=== PATIENT | female | born 1990 | race American Indian/Alaskan Native ===

== ENCOUNTER 2016-10-22 12:57 | Emergency (ER) | payer SELFPAY ==
--- NOTE | 2016-10-22 19:33 | Emergency Department Report ---
ED General Adult HPI - General Chief complaint: Extremity Injury, Upper Stated complaint: CHEST PAIN/EAR ACHES/HEADACHES/NAUSEA Time Seen by Provider: 10/22/16 19:32 Source: patient Mode of arrival: Ambulatory Limitations: No Limitations - History of Present Illness Initial comments: Patient reports headache, missed menstrual cycle, left earache and dizziness that started one month ago that is intermittently. However, headache and dizziness has resolved. LMP 09/19/16 Complaint: URI Onset/Timin -: month(s) Location: head Radiation: non-radiation Severity scale (0 -10): 6 Quality: aching Consistency: intermittent Improves with: none Worsens with: movement Associated Symptoms: headaches. denies: confusion, chest pain, cough, diaphoresis, fever/chills, loss of appetite, malaise, nausea/vomiting, rash, seizure, shortness of breath, syncope, weakness Treatments Prior to Arrival: none - Related Data Previous Rx's Medication Instructions Recorded Last Taken Type Vit No.130/Iron/FA 1 each PO DAILY #30 tablet 10/22/16 Unknown Rx [ Tablet] Allergies Allergy/AdvReac Type Severity Reaction Status Date / Time No Known Allergies Allergy Verified 04/12/14 13:08 ED Review of Systems ROS: Stated complaint: CHEST PAIN/EAR ACHES/HEADACHES/NAUSEA Other details as noted in HPI Constitutional: denies: chills, diaphoresis, fever, malaise, weakness Eyes: denies: eye pain, eye discharge, vision change ENT: ear pain (left). denies: throat pain, dental pain, hearing loss, epistaxis , congestion Respiratory: denies: cough, orthopnea, shortness of breath, SOB with exertion, SOB at rest, stridor, wheezing Gastrointestinal: denies: abdominal pain, nausea, vomiting, diarrhea, constipation, hematemesis, melena, hematochezia Genitourinary: abnormal menses. denies: urgency, dysuria, frequency, hematuria , discharge, dyspareunia Musculoskeletal: denies: back pain, joint swelling, arthralgia, myalgia Skin: denies: rash, lesions, change in color, change in hair/nails, pruritus Neurological: headache, other (dizziness). denies: weakness, numbness, paresthesias, confusion, abnormal gait, vertigo Hematological/Lymphatic: denies: easy bleeding, easy bruising, swollen glands ED Past Medical Hx - Social History Smoking Status: Current Some Day Smoker Substance Use Type: None - Medications Home Medications: Home Medications Medication Instructions Recorded Confirmed Last Taken Type Vit No.130/Iron/FA 1 each PO DAILY #30 tablet 10/22/16 Unknown Rx [ Tablet] ED Physical Exam - General Limitations: No Limitations General appearance: alert, in no apparent distress - Head Head exam: Present: atraumatic, normocephalic, normal inspection - Eye Eye exam: Present: normal appearance Pupils: Present: normal accommodation - ENT ENT exam: Present: normal exam, normal orophraynx, mucous membranes moist, normal external ear exam. Absent: mucous membranes dry - Expanded ENT Exam Expanded Ear exam: Present: normal external inspection. Absent: auricular hematoma, auricular trauma TM/Canal exam: Cerumen Impaction: Left TM Mouth exam: Present: normal external inspection, tongue normal. Absent: drooling, trismus, muffled voice, tongue elevation, laceration Teeth exam: Present: normal inspection. Absent: dental caries, fractured tooth #, dental tenderness #, gingival enlargement Throat exam: Positive: normal inspection. Negative: tonsillar erythema, tonsillomegaly, tonsillar exudate, R peritonsillar mass, L peritonsillar mass - Neck Neck exam: Present: normal inspection, full ROM. Absent: tenderness, meningismus, lymphadenopathy, thyromegaly - Respiratory Respiratory exam: Present: normal lung sounds bilaterally. Absent: respiratory distress, wheezes, rales, rhonchi, stridor, chest wall tenderness, accessory muscle use, decreased breath sounds, prolonged expiratory - Cardiovascular Cardiovascular Exam: Present: regular rate, normal rhythm, normal heart sounds. Absent: systolic murmur, diastolic murmur, rubs, gallop, clicks, JVD, S3, S4 - GI/Abdominal GI/Abdominal exam: Present: soft, tenderness (suprapubic), normal bowel sounds. Absent: distended, guarding, rebound, rigid - Extremities Exam Extremities exam: Present: normal inspection, full ROM, normal capillary refill. Absent: tenderness, pedal edema, joint swelling, calf tenderness - Back Exam Back exam: Present: normal inspection, full ROM. Absent: tenderness, CVA tenderness (R), CVA tenderness (L), muscle spasm, paraspinal tenderness, vertebral tenderness, rash noted - Neurological Exam Neurological exam: Present: alert, oriented X3, CN II-XII intact, normal gait, reflexes normal, other (no focal neuro deficits). Absent: motor sensory deficit - Psychiatric Psychiatric exam: Present: normal affect, normal mood. Absent: depressed, agitated - Skin Skin exam: Present: warm, dry, intact, normal color. Absent: rash ED Course Vital Signs 10/22/16 10/22/16 13:43 19:30 Temperature 97.5 F L Pulse Rate 99 H Respiratory 18 18 Rate Blood Pressure 113/73 O2 Sat by Pulse 99 98 Oximetry - Reevaluation(s) Reevaluation #1: 10/22/16 20:29 Orthostatics and Laboratory studies ordered Reevaluation #2: 10/22/16 20:57 Laboratories and radiology studies ordered ED Medical Decision Making - Lab Data Result diagrams: 10/22/16 21:09 Lab Results 10/22/16 10/22/16 Range/Units 19:54 20:01 HCG, Quant 1761 H (0-4) mIU/mL Urine Color Yellow (Yellow) Urine Turbidity Clear (Clear) Urine pH 5.0 (5.0-7.0) Ur Specific Bagley 1.027 (1.003-1.030) Urine Protein <15 mg/dl (Negative) mg/dL Urine Glucose (UA) Neg (Negative) mg/dL Urine Ketones 80 (Negative) mg/dL Urine Blood Neg (Negative) Urine Nitrite Neg (Negative) Urine Bilirubin Neg (Negative) Urine Urobilinogen < 2.0 (<2.0) mg/dL Ur Leukocyte Esterase Neg (Negative) Urine WBC (Auto) 1.0 (0.0-6.0) /HPF Urine RBC (Auto) 3.0 (0.0-6.0) /HPF U Epithel Cells (Auto) 8.0 (0-13.0) /HPF Urine Mucus 2+ /HPF Vital Signs 10/22/16 10/22/16 13:43 19:30 Temperature 97.5 F L Pulse Rate 99 H Respiratory 18 18 Rate Blood Pressure 113/73 O2 Sat by Pulse 99 98 Oximetry Lab Results 10/22/16 10/22/16 10/22/16 Range/Units 19:54 20:01 21:09 WBC 9.1 (4.5-11.0) K/mm3 RBC 4.18 (3.65-5.03) M/mm3 Hgb 12.7 (10.1-14.3) gm/dl Hct 38.0 (30.3-42.9) % MCV 91 (79-97) fl MCH 30 (28-32) pg MCHC 34 (30-34) % RDW 12.7 L (13.2-15.2) % Plt Count 270 (140-440) K/mm3 Lymph % (Auto) 26.2 (13.4-35.0) % Callaway % (Auto) 7.9 H (0.0-7.3) % Eos % (Auto) 6.1 H (0.0-4.3) % Baso % (Auto) 0.7 (0.0-1.8) % Lymph # 2.4 (1.2-5.4) K/mm3 Callaway # 0.7 (0.0-0.8) K/mm3 Eos # 0.6 H (0.0-0.4) K/mm3 Baso # 0.1 (0.0-0.1) K/mm3 Seg Neutrophils % 59.1 (40.0-70.0) % Seg Neutrophils # 5.4 (1.8-7.7) K/mm3 HCG, Quant 1761 H (0-4) mIU/mL Urine Color Yellow (Yellow) Urine Turbidity Clear (Clear) Urine pH 5.0 (5.0-7.0) Ur Specific Bagley 1.027 (1.003-1.030) Urine Protein <15 mg/dl (Negative) mg/dL Urine Glucose (UA) Neg (Negative) mg/dL Urine Ketones 80 (Negative) mg/dL Urine Blood Neg (Negative) Urine Nitrite Neg (Negative) Urine Bilirubin Neg (Negative) Urine Urobilinogen < 2.0 (<2.0) mg/dL Ur Leukocyte Esterase Neg (Negative) Urine WBC (Auto) 1.0 (0.0-6.0) /HPF Urine RBC (Auto) 3.0 (0.0-6.0) /HPF U Epithel Cells (Auto) 8.0 (0-13.0) /HPF Urine Mucus 2+ /HPF Blood Type Ord Rhogam Gestat Weeks WEEKS 10/22/16 Range/Units 21:09 WBC (4.5-11.0) K/mm3 RBC (3.65-5.03) M/mm3 Hgb (10.1-14.3) gm/dl Hct (30.3-42.9) % MCV (79-97) fl MCH (28-32) pg MCHC (30-34) % RDW (13.2-15.2) % Plt Count (140-440) K/mm3 Lymph % (Auto) (13.4-35.0) % Call[place] % (Auto) (0.0-7.3) % Eos % (Auto) (0.0-4.3) % Baso % (Auto) (0.0-1.8) % Lymph # (1.2-5.4) K/mm3 Callaway # (0.0-0.8) K/mm3 Eos # (0.0-0.4) K/mm3 Baso # (0.0-0.1) K/mm3 Seg Neutrophils % (40.0-70.0) % Seg Neutrophils # (1.8-7.7) K/mm3 HCG, Quant (0-4) mIU/mL Urine Color (Yellow) Urine Turbidity (Clear) Urine pH (5.0-7.0) Ur Specific Bagley (1.003-1.030) Urine Protein (Negative) mg/dL Urine Glucose (UA) (Negative) mg/dL Urine Ketones (Negative) mg/dL Urine Blood (Negative) Urine Nitrite (Negative) Urine Bilirubin (Negative) Urine Urobilinogen (<2.0) mg/dL Ur Leukocyte Esterase (Negative) Urine WBC (Auto) (0.0-6.0) /HPF Urine RBC (Auto) (0.0-6.0) /HPF U Epithel Cells (Auto) (0-13.0) /HPF Urine Mucus /HPF Blood Type O POSITIVE Ord Rhogam Gestat Weeks Rh pos WEEKS - Radiology Data Radiology results: image reviewed HISTORY: Pelvic pain. COMPARISON: No prior studies are available for comparison. FINDINGS: LMP: 09/19/2016. Clinical age: 4 weeks 5 days. EDC: 06/26/2017. CRL: No pole identified. Yolk Sac: Normal. Embryonic Cardiac Activity: No cardiac activity Gestational Sac: Mean sac diameter 3.9 millimeters, 5 weeks 1 day. 8 x 5 by 20 millimeter subchorionic bleed. Amniotic fluid: Normal. Cervix: Normal. Right Ovary: 3 x 2.3 x 2.6 centimeters. 3 centimeter hypoechoic lesion. Normal flow. Left Ovary: 3.8 x 1.5 x 2 centimeters. 1.8 complex hypoechoic lesion. Normal flow. Uterus: 7.1 x 3.7 x 5.2 centimeters. Estimated delivery date: 06/23/2017. Uterus and adnexa: Normal. IMPRESSION: Possible small intrauterine gestational sac. No pole identified. No cardiac activity detected. By measurements 5 weeks 1 day with EDC of 06/23/2017. Consider this could represent very early intrauterine . Hypoechoic ovarian lesions likely cysts. Without definite intrauterine although unlikely cannot completely exclude ectopic. Consider correlation with beta HCG, short-term followup ultrasound, and clinical correlation. Moderate subchorionic bleed can also be re-evaluated on followup exam. - Medical Decision Making During the course of ED, laboratory and radiology studies were ordered. The imaging study revealedPossible small intrauterine gestational sac. No pole identified. No cardiac activity detected. By measurements 5 weeks 1 day with EDC of 06/23/2017. Consider this could represent very early intrauterine . Hypoechoic ovarian lesions likely cysts. Without definite intrauterine although unlikely cannot completely exclude ectopic. Consider correlation with beta HCG, short-term followup ultrasound, and clinical correlation. Moderate subchorionic bleed can also be re-evaluated on followup exam. Patient was sent home with prescription for vitamins and instructed to purchase OTC ear wax softening, instructed to follow up with selective referrals given at discharge for repeated Beta Hcg and short-term ultrasound, she verbalize understanding - Differential Diagnosis Early IUP, Left ear cerumen impaction, UTI Critical care attestation.: If time is entered above; I have spent that time in minutes in the direct care of this critically ill patient, excluding procedure time. ED Disposition Clinical Impression: Impacted cerumen of left ear Qualifiers: Weeks of gestation: less than 8 weeks Qualified Code(s): Z3A.01 - Less than 8 weeks gestation of Disposition: DISCHARGED TO HOME OR SELFCARE Is pt being admited?: No Does the pt Need Aspirin: No Condition: Stable Instructions: (ED), Cerumen Impaction (ED) Additional Instructions: Take medication as directed. Buy over the counter Debrox ear wax softening for left ear and use as directed. Follow up with the selective referrals given at discharge for repeated Beta Hcg and short-term ultrasound. Return back to the ED for worsening symptoms or concerns Prescriptions: Vit No.130/Iron/FA [ Tablet] 1 each PO DAILY #30 tablet Referrals: PRIMARY CAREMD [Primary Care Provider] - 3-5 Days INDRA OCONNOR MD [Staff Physician] - 3-5 Days REINIER CHUNG MD [Staff Physician] - 3-5 Days CATERINA GREER MD [Staff Physician] - 3-5 Days MAGALIS ARREDONDO CNM [Advanced Practice Nurse] - 3-5 Days Forms: Work/School Release Form(ED) Time of Disposition: 01:12
[2016-10-22 20:26] LABS: Bilirubin,Urine NEG (Negative); Blood,Urine NEG (Negative); Ketones,Urine 80 mg/dL (Negative); Leukocyte Esterase,Urine NEG (Negative); Mucus,Urine 2+ /HPF; Nitrite,Urine NEG (Negative); Protein,Urine <15 mg/dL mg/dL (Negative); Urobilinogen,Urine < 2.0 mg/dL (<2.0)
[2016-10-22 21:27] LABS: Basophils % (Auto) 0.7 % (0.0-1.8); Eosinophils % (Auto) 6.1 % (0.0-4.3); Hemoglobin 12.7 gm/dl (10.1-14.3); Mean Corpuscular HGB Conc 34 % (30-34); Mean Corpuscular Hemoglobin 30 pg (28-32); Mean Corpuscular Volume 91 fl (79-97); Platelet Count 270 K/mm3 (140-440); Red Blood Count 4.18 M/mm3 (3.65-5.03); Red Cell Distribution Width 12.7 % (13.2-15.2); White Blood Count 9.1 K/mm3 (4.5-11.0)
--- NOTE | 2016-10-23 00:55 | Ultrasound Report ---
FINAL REPORT PROCEDURE: US OB transabdominal and transvaginal. TECHNIQUE: Real-time transabdominal and transvaginal sonography of the uterus, placenta, amniotic fluid, adnexa, and fetus was performed with image documentation. Measurements were obtained to determine age/size. M-mode Doppler was used to document heartbeat. CPT 95609 and 59359 HISTORY: Pelvic pain. COMPARISON: No prior studies are available for comparison. FINDINGS: LMP: 09/19/2016. Clinical age: 4 weeks 5 days. EDC: 06/26/2017. CRL: No pole identified. Yolk Sac: Normal. Embryonic Cardiac Activity: No cardiac activity Gestational Sac: Mean sac diameter 3.9 millimeters, 5 weeks 1 day. 8 x 5 by 20 millimeter subchorionic bleed. Amniotic fluid: Normal. Cervix: Normal. Right Ovary: 3 x 2.3 x 2.6 centimeters. 3 centimeter hypoechoic lesion. Normal flow. Left Ovary: 3.8 x 1.5 x 2 centimeters. 1.8 complex hypoechoic lesion. Normal flow. Uterus: 7.1 x 3.7 x 5.2 centimeters. Estimated delivery date: 06/23/2017. Uterus and adnexa: Normal. IMPRESSION: Possible small intrauterine gestational sac. No pole identified. No cardiac activity detected. By measurements 5 weeks 1 day with EDC of 06/23/2017. Consider this could represent very early intrauterine . Hypoechoic ovarian lesions likely cysts. Without definite intrauterine although unlikely cannot completely exclude ectopic. Consider correlation with beta HCG, short-term followup ultrasound, and clinical correlation. Moderate subchorionic bleed can also be re-evaluated on followup exam.
[2016-10-23 01:48] VITALS: BP 106/70
== END 2016-10-23 01:50 | disposition home or self-care (01) ==
LOC: ED 12:57
DX: O26.891 Other specified pregnancy related conditions, first trimester (principal); H61.22 Impacted cerumen, left ear; Z3A.01 Less than 8 weeks gestation of pregnancy; F17.200 Nicotine dependence, unspecified, uncomplicated
CPT/HCPCS: 36415; 76801; 76817; 81001; 84702; 85025; 86900; 86901

== ENCOUNTER 2016-11-24 23:51 | Emergency (ER) | payer SELFPAY ==
[2016-11-25 00:41] LABS: Basophils % (Auto) 0.4 % (0.0-1.8); Eosinophils % (Auto) 2.3 % (0.0-4.3); Hemoglobin 10.7 gm/dl (10.1-14.3); Mean Corpuscular HGB Conc 33 % (30-34); Mean Corpuscular Hemoglobin 30 pg (28-32); Mean Corpuscular Volume 91 fl (79-97); Platelet Count 260 K/mm3 (140-440); Red Blood Count 3.51 M/mm3 (3.65-5.03); Red Cell Distribution Width 12.7 % (13.2-15.2); White Blood Count 10.7 K/mm3 (4.5-11.0)
[2016-11-25 01:49] LABS: Bilirubin,Urine NEG (Negative); Blood,Urine MOD (Negative); Ketones,Urine NEG (Negative); Leukocyte Esterase,Urine NEG (Negative); Mucus,Urine FEW /HPF; Nitrite,Urine NEG (Negative); Protein,Urine <15 mg/dL mg/dL (Negative); Urobilinogen,Urine < 2.0 mg/dL (<2.0)
[2016-11-25 07:26] VITALS: BP 109/69
--- NOTE | 2016-11-25 07:57 | Emergency Department Report ---
HPI - General Chief Complaint: Vaginal Bleeding Time Seen by Provider: 11/25/16 07:45 - HPI HPI: This is a 26-year-old Afro[place] female presents to the emergency department at about 9 weeks with a short amount of vaginal bleeding just prior to presentation today. Patient says that she is . She previously found out she was at a hospital about 5 weeks ago and was told at that time that she was 4 weeks . Her last menstrual cycle is 09/19/2016. She does not currently have an COMMUNITY DEVELOPMENT SPECIALIST. She stopped taking vitamins as she says that it makes her nauseated and sick. No recent travel or sick contacts at home. She denies any abdominal pain, back pain, dysuria, vaginal discharge, fever, nausea or vomiting. She otherwise denies any past medical history. She does not have a primary care doctor. ED Past Medical Hx - Past Medical History Previous Medical History?: No - Surgical History Past Surgical History?: No - Social History Smoking Status: Never Smoker Substance Use Type: None - Medications Home Medications: Home Medications Medication Instructions Recorded Confirmed Last Taken Type No Known Home Medications [No 11/25/16 11/25/16 Unknown History Reported Home Medications] ED Review of Systems ROS: Stated complaint: VAGINAL BLEEDING Other details as noted in HPI Comment: All other systems reviewed and negative Constitutional: denies: chills, fever Eyes: denies: eye pain, eye discharge, vision change ENT: denies: ear pain, throat pain Respiratory: denies: cough, shortness of breath, wheezing Cardiovascular: denies: chest pain, palpitations Gastrointestinal: denies: abdominal pain, nausea, diarrhea Genitourinary: other (vaginal bleeding). denies: urgency, dysuria, discharge Musculoskeletal: denies: back pain, joint swelling, arthralgia Skin: denies: rash, lesions Neurological: denies: headache, weakness, paresthesias Physical Exam - Physical Exam Vital Signs: Vital Signs 11/24/16 11/25/16 11/25/16 23:56 06:30 07:23 Temperature 98.8 F 98.5 F 98.1 F Pulse Rate 91 H 88 93 H Respiratory 18 14 12 Rate Blood Pressure 111/58 105/66 Blood Pressure 109/69 [Left] O2 Sat by Pulse 100 100 100 Oximetry Physical Exam: GENERAL: The patient is well-developed well-nourished. HEENT: Normocephalic. Atraumatic. Extraocular motions are intact. Patient has moist mucous membranes. Pupils equal reactive to light bilaterally. NECK: Supple. Trachea is midline. CHEST/LUNGS: Clear to auscultation. There is no respiratory distress noted. HEART/CARDIOVASCULAR: Regular. There is no tachycardia. There is no gallop rub or murmur. ABDOMEN: Abdomen is soft, nontender. Patient has normal bowel sounds. There is no abdominal distention. SKIN: There is no rash. There is no edema. There is no diaphoresis. NEURO: The patient is awake, alert, and oriented. The patient is cooperative. The patient has no focal neurologic deficits. The patient has normal speech. MUSCULOSKELETAL: There is no tenderness or deformity. There is no limitation range of motion. There is no evidence of acute injury. ED Course Vital Signs 11/24/16 11/25/16 11/25/16 23:56 06:30 07:23 Temperature 98.8 F 98.5 F 98.1 F Pulse Rate 91 H 88 93 H Respiratory 18 14 12 Rate Blood Pressure 111/58 105/66 Blood Pressure 109/69 [Left] O2 Sat by Pulse 100 100 100 Oximetry ED Medical Decision Making - Lab Data Result diagrams: 11/25/16 00:21 - Radiology Data Radiology results: report reviewed Transvaginal/ ultrasound shows a live intrauterine at about 9.5 weeks. There is also a large subchorionic bleed. - Medical Decision Making 26-year-old female presents the emergency department with some mild vaginal bleeding that occurred earlier in resolved prior to presentation. Patient had found out she was a few weeks ago and estimates she is about 9 weeks . She denies any intractable nausea or fever, or even any significant abdominal discomfort. Patient's labs and an unremarkable. A transvaginal/ ultrasound was done that shows a live intrauterine at about 9.5 weeks, as well as a large subchorionic hemorrhage. I discussed the labs and imaging results with the patient. She will be given referrals for COMMUNITY DEVELOPMENT SPECIALIST. She understands that she needs to get on some type of vitamin or supplementation but only things that are approved by the CERAMICS ENGINEER. She already has vitamins at home if she chooses to go back to taking them. We discussed the diagnosis of threatened miscarriage. She will return to the ER with any worsening of her symptoms or any acute distress. - Differential Diagnosis , threatened miscarriage, fibroids, spontaneous miscarriage Critical Care Time: No Critical care attestation.: If time is entered above; I have spent that time in minutes in the direct care of this critically ill patient, excluding procedure time. ED Disposition Clinical Impression: Threatened Qualifiers: Weeks of gestation: 9 weeks Qualified Code(s): Z3A.09 - 9 weeks gestation of Subchorionic bleed Qualifiers: Trimester: first trimester Qualified Code(s): O46.8X1 - Other antepartum hemorrhage, first trimester; O41.8X10 - Other specified disorders of amniotic fluid and membranes, first trimester, not applicable or unspecified Disposition: DISCHARGED TO HOME OR SELFCARE Is pt being admited?: No Condition: Stable Instructions: (ED), Threatened Miscarriage (ED) Additional Instructions: Please follow up with a COMMUNITY DEVELOPMENT SPECIALIST in the next few days. Return to the emergency department with any return or worsening of your vaginal bleeding, sharp/ cramping abdominal pains, or any acute distress. It is recommended that she restart your vitamins but at least speak to your COMMUNITY DEVELOPMENT SPECIALIST regarding her options. Referrals: PRIMARY CARE, [Primary Care Provider] - 3-5 Days SONALI HODGE MD [Staff Physician] - 3-5 Days ANA ROSA CLOUD MD [Staff Physician] - 3-5 Days Time of Disposition: 10:55
--- NOTE | 2016-11-25 10:41 | Ultrasound Report ---
ULTRASOUND OB LESS THAN 14 WEEKS: ULTRASOUND OB TRANSVAGINAL: HISTORY: Vaginal bleeding during . FINDINGS: Transabdominal and transvaginal ultrasound imaging was performed and compared to the exam dated 10/22/16. The uterus measures 11 x 5 x 7 cm. An intrauterine gestational sac containing a pole and a yolk sac is identified. Estimated age on ultrasound is 9 weeks, 4 days. Heart rate measures 176 beats per minute. A large subchorionic hemorrhage is identified along the posterior, inferior border of the gestational sac. The right ovary measures 2.3 x 2.1 x 2.6 cm. A 1.6 cm cyst is noted in the right ovary. The left ovary measures 3.7 x 1.7 x 2.5 cm. A 1.6 cm cyst is also identified in the left ovary. No pelvic fluid collection. IMPRESSION: Viable, single intrauterine dated at 9 weeks, 4 days. Large subchorionic hemorrhage. Bilateral ovarian cysts, as described.
== END 2016-11-25 11:02 | disposition home or self-care (01) ==
LOC: ED 23:51
DX: O20.0 Threatened abortion (principal); O46.8X1 Other antepartum hemorrhage, first trimester; O41.8X10 Other specified disorders of amniotic fluid and membranes, first trimester, not applicable or unspecified; Z3A.09 9 weeks gestation of pregnancy
CPT/HCPCS: 36415; 76801; 76817; 81001; 84702; 85025; 86850; 86900; 86901

== ENCOUNTER 2017-05-26 09:45 | Outpatient (CLI) | payer MEDICAID | END 2017-05-26 09:46 | disposition home or self-care (01) | LOC: LABHHL 09:45 | PROVIDERS: ATTEND Surgery | DX: D24.2 Benign neoplasm of left breast (principal); N60.81 Other benign mammary dysplasias of right breast; N62 Hypertrophy of breast | CPT/HCPCS: 88305 ==

== ENCOUNTER 2017-06-03 23:20 | Inpatient (IN) | payer MEDICAID ==
[2017-06-03] MEDS ORDERED: PITOCin/NS 20 UNIT/1000ML DRIP 20,000 MILLIUNITS/1,000 ML BAG IV ONE (23:59)
[2017-06-04] MEDS ORDERED: BRETHINE SUB-Q PRN (00:18)
[2017-06-04] MEDS ORDERED: MINERAL OIL PO PRN (00:18)
[2017-06-04] MEDS ORDERED: XYLOCAINE 2% INFILTRATI ONE (00:18)
[2017-06-04] MEDS ORDERED: SUBLIMAZE IV PRN (00:18)
[2017-06-04] MEDS ORDERED: BRETHINE IVP PRN (00:18)
[2017-06-04] MEDS ORDERED: ePHEDrine SULFATE IV PRN (00:18)
--- NOTE | 2017-06-04 00:30 | Procedure Note ---
OB Delivery Note - Delivery Date of Delivery: 06/04/17 Surgeon: JETT ARMENTA Estimated blood loss: 200cc - Vaginal Delivery presentation: vertex Delivery position: OA Intrapartum events: precipitous labor- <3hr Delivery induction: none Delivery monitor: none Route of delivery: Delivery placenta: spontaneous Delivery cord: 3 umbilical vessels Episiotomy: none Delivery laceration: none Anesthesia: none - A at 1 minute: 6 at 5 minutes: 9 Infant Gender: Female (Del @ 23:54, weight is 2933 g)
[2017-06-04] MEDS ORDERED: LANSINOH TP PRN (00:31)
[2017-06-04] MEDS ORDERED: TYLENOL PO PRN (00:31)
[2017-06-04] MEDS ORDERED: BENADRYL PO PRN (00:31)
[2017-06-04] MEDS ORDERED: DULCOLAX PR PRN (00:31)
[2017-06-04] MEDS ORDERED: PHENERGAN PR PRN (00:31)
[2017-06-04] MEDS ORDERED: NORCO 5/325 PO PRN (00:31)
[2017-06-04] MEDS ORDERED: ZOFRAN IV PRN (00:31)
[2017-06-04] MEDS ORDERED: TUCKS PAD TP PRN (00:31)
[2017-06-04] MEDS ORDERED: MILK OF MAGNESIA PO PRN (00:31)
[2017-06-04] MEDS ORDERED: PHENERGAN PO PRN (00:31)
[2017-06-04 00:57] LABS: Hematocrit 33.7 % (30.3-42.9); Hemoglobin 10.9 gm/dl (10.1-14.3); Mean Corpuscular HGB Conc 32 % (30-34); Mean Corpuscular Hemoglobin 30 pg (28-32); Mean Corpuscular Volume 94 fl (79-97); Platelet Count 195 K/mm3 (140-440); Red Blood Count 3.59 M/mm3 (3.65-5.03); Red Cell Distribution Width 13.4 % (13.2-15.2); White Blood Count 12.5 K/mm3 (4.5-11.0)
[2017-06-04] MEDS ORDERED: SENOKOT S PO SCH (01:00)
[2017-06-04] MEDS ORDERED: LACTATED RINGERS 1,000 ML IV SCH (01:00)
[2017-06-04] MEDS ORDERED: SODIUM CHLORIDE FLUSH SYRINGE 10 ML IV PRN (01:00)
[2017-06-04] MEDS: PITOCin/NS 20 UNIT/1000ML DRIP 20 UNITS/1,000 ML BAG IV SCH ×2 (01:19→02:00)
[2017-06-04] MEDS: MOTRIN PO SCH ×3 (02:39→18:32)
--- NOTE | 2017-06-04 08:31 | History and Physical Report ---
History of Present Illness Date of examination: 06/03/17 Date of admission: 06/03/17 23:56 Chief complaint: contractions History of present illness: Late Entry. Pacheco Pt is a 26 year old -Iraqi female MARIANO: 06/26/17 at 36w5d who presents with regular painful contractions. She was noted to be 7 cm on exam in triage. She has had care at [facility] since 11 wks complicated by lapse of care between 16 and 28 weeks, 4 cm right reast fibroadenoma followed by Dr Shaw, ptbird, and subchorionic hemorrhage on 11/24/16. She is GBS negative. Past History Past Medical History: no pertinent history, other (breast fibroadenoma) Past Surgical History: no surgical history Family/Genetic History: none Social history: no significant social history - Obstetrical History Expected Date of Delivery: 06/26/17 Actual Gestation: 36 Week(s) 6 Day(s) : 3 Para: 2 Hx # Term Pregnancies: 2 Number of Pregnancies: 0 Spontaneous Abortions: 0 Induced : 0 Number of Living Children: 2 Medications and Allergies Allergies Allergy/AdvReac Type Severity Reaction Status Date / Time No Known Allergies Allergy Verified 04/12/14 13:08 Home Medications Medication Instructions Recorded Confirmed Last Taken Type Ferrous Sulfate [Feosol 325 MG tab] 325 mg PO BID #60 tablet 06/04/17 Unknown Rx HYDROcodone/APAP 5-325 [[place] 1 each PO Q6HR PRN #30 tablet 06/04/17 Unknown Rx 5/325] Ibuprofen [Motrin] 600 mg PO Q6H PRN #30 tablet 06/04/17 Unknown Rx Active Meds: Active Medications Acetaminophen (Tylenol) 650 mg PO Q4H PRN PRN Reason: Pain MILD(1-3)/Fever >100.5/ONEILL Acetaminophen/Hydrocodone Bitart ([place] 5/325) 2 each PO Q6H PRN PRN Reason: Pain, Moderate (4-6) Last Admin: 06/04/17 02:39 Dose: 1 each Bisacodyl (Dulcolax) 10 mg OR BID PRN PRN Reason: Constipation Diphenhydramine HCl (Benadryl) 25 mg PO Q6H PRN PRN Reason: Itching Docusate Sodium (Colace) 100 mg PO BID [place] Fentanyl (Sublimaze) 100 mcg IV Q2H PRN PRN Reason: Labor Pain Ferrous Sulfate (Feosol) 325 mg PO BID [facility] Lactated Ringer's (Lactated Ringers) 1,000 mls @ 125 mls/hr IV DIRECT DOR[place] Oxytocin/Sodium Chloride (Pitocin/Ns 20 Unit/1000ml Drip) 20 units in 1,000 mls @ 125 mls/hr IV DIRECT DOROTA Last Admin: 06/04/17 02:00 Dose: 125 mls/hr Ibuprofen (Motrin) 600 mg PO Q6HR [place] Last Admin: 06/04/17 02:39 Dose: 600 mg Magnesium Hydroxide (Milk Of Magnesia) 30 ml PO HS PRN PRN Reason: Constipation Mineral Oil (Mineral Oil) 30 ml PO QHS PRN PRN Reason: Constipation Multi-Ingredient Ointment (Lansinoh) 1 applic TP PRN PRN PRN Reason: Sore Nipples Multivitamins/Iron/Calcium ( Vitamin) 1 each PO QDAY [facility] Ondansetron HCl (Zofran) 4 mg IV Q8H PRN PRN Reason: Nausea And Vomiting Promethazine HCl (Phenergan) 25 mg OR Q6H PRN PRN Reason: Nausea And Vomiting Promethazine HCl (Phenergan) 25 mg PO Q6H PRN PRN Reason: Nausea And Vomiting Senna/Docusate Sodium (Senokot S) 2 tab PO Q12HR [facility] Sodium Chloride (Sodium Chloride Flush Syringe 10 Ml) 10 ml IV PRN PRN PRN Reason: LINE FLUSH Witch Sara/Glycerin (Tucks Pad) 1 each TP PRN PRN PRN Reason: Hemorrhoid/cleansing/soothing Last Admin: 06/04/17 02:39 Dose: 1 each Review of Systems All systems: negative - Vital Signs Vital signs: Vital Signs Temp Pulse Resp BP 98.3 F 134 H 20 93/55 06/03/17 23:29 06/03/17 23:29 06/03/17 23:29 06/03/17 23:29 Temp Pulse Resp BP Pulse Ox 98.4 F 90 20 110/72 100 06/04/17 04:55 06/04/17 04:55 06/04/17 04:55 06/04/17 04:55 06/04/17 00:35 - Obstetrical Cervical Dilatation: 7 (per RN ) Cervical Effacement Percentage: 90 station: -1 Results Result Diagrams: 06/04/17 12:51 Abnormal lab results 06/04/17 Range/Units 00:15 WBC 12.5 H (4.5-11.0) K/mm3 RBC 3.59 L (3.65-5.03) M/mm3 All other labs normal. Assessment and Plan A: IUP at 36w5d Labor Insufficient care GBS Negative Right breast fibroadenoma P: Admit to labor and delivery Routine intrapartum care. Anticipate vaginal delivery.
--- NOTE | 2017-06-04 08:31 | Progress Note ---
Assessment and Plan A: ~9 hrs s/p at 36 wks P: Continue routine care. Subjective - Subjective Date of service: 06/04/17 Principal diagnosis: s/p delivery at 36 wks Interval history: Pt without complaints this morning. Patient reports: appetite normal, voiding normally, pain well controlled, ambulating normally : doing well, bottle feeding Objective - Vital Signs Latest vital signs: Vital Signs Temp Pulse Resp BP Pulse Ox 06/04/17 04:55 98.4 F 90 20 110/72 06/04/17 02:10 98.5 F 93 H 20 95/50 06/04/17 01:19 100 H 105/66 06/04/17 01:09 100 H 114/73 06/04/17 00:59 109/70 06/04/17 00:49 97 H 106/61 06/04/17 00:39 99 H 110/64 06/04/17 00:35 103 H 100 06/04/17 00:30 94 H 100 06/04/17 00:29 117 H 121/57 06/03/17 23:29 98.3 F 134 H 20 93/55 Intake and Output 06/03/17 06/04/17 06/04/17 22:59 06:59 14:59 Other: Weight 64.41 kg Estimated Blood Loss 200 - Exam Breasts: Present: deferred Cardiovascular: Present: Regular rate Lungs: Present: Clear to auscultation Abdomen: Present: soft Uterus: Present: normal, fundal height at umbilicus Extremities: Present: normal - Labs Labs: Abnormal lab results 06/04/17 Range/Units 00:15 WBC 12.5 H (4.5-11.0) K/mm3 RBC 3.59 L (3.65-5.03) M/mm3
[2017-06-04] MEDS: PRENATAL VITAMIN PO SCH (11:04)
[2017-06-04] MEDS: FEOSOL PO SCH (11:04)
[2017-06-04] MEDS: COLACE PO SCH (11:04)
[2017-06-04 13:11] LABS: Hematocrit 30.9 % (30.3-42.9); Hemoglobin 10.3 gm/dl (10.1-14.3)
[2017-06-05] MEDS: MOTRIN PO SCH ×3 (00:17→12:02)
[2017-06-05] MEDS: FEOSOL PO SCH (10:22)
[2017-06-05] MEDS: COLACE PO SCH (10:23)
[2017-06-05] MEDS: PRENATAL VITAMIN PO SCH (10:23)
--- NOTE | 2017-06-05 11:29 | Progress Note ---
Assessment and Plan PPD 1 s/p at 36+ weeks. Patient doing well. Patient would like to be discharged today if able to go as well. Subjective - Subjective Date of service: 06/05/17 Principal diagnosis: s/p delivery at 36 wks Patient reports: appetite normal, voiding normally, pain well controlled, ambulating normally : doing well Objective - Vital Signs Latest vital signs: Vital Signs Temp Pulse Resp BP 06/05/17 05:25 18 06/05/17 00:17 18 06/05/17 00:00 98.2 F 68 20 128/73 06/04/17 16:40 98.4 F 77 19 109/71 Intake and Output 06/04/17 06/05/17 06/05/17 22:59 06:59 14:59 Intake Total 480 360 Balance 480 360 Intake: Oral 480 360 Other: Total, Intake Amount 240 120 # Voids Void 1 1 - Exam Breasts: Present: deferred Cardiovascular: Present: Regular rate, Normal S1, Normal S2 Lungs: Present: Clear to auscultation, Normal air movement Abdomen: Present: normal appearance, soft, normal bowel sounds Vulva: both: normal Uterus: Present: normal, firm Extremities: Present: normal Deep Tendon Reflex Grade: Normal +2
--- NOTE | 2017-06-05 11:30 | Discharge Summary ---
Providers - Providers Date of Admission: 06/03/17 23:56 Date of discharge: 06/05/17 Attending physician: JULIANA LYNN Primary care physician: JULIANA LYNN Hospitalization Reason for admission: active labor, labor Delivery: Episiotomy: none Laceration: none complications: none Discharge diagnosis: IUP at term delivered [place] baby: female Hospital course: unremarkable Condition at discharge: Good Disposition: DC-01 TO HOME OR SELFCARE Plan - Discharge Medications Prescriptions: Ferrous Sulfate [Feosol 325 MG tab] 325 mg PO BID #60 tablet HYDROcodone/APAP 5-325 [[place] 5/325] 1 each PO Q6HR PRN #30 tablet PRN Reason: Pain Ibuprofen [Motrin] 600 mg PO Q6H PRN #30 tablet PRN Reason: Pain - Provider Discharge Summary Activity: routine, no sex for 6 weeks, no heavy lifting 4 weeks, no strenuous exercise Diet: routine Instructions: routine Additional instructions: [] Smoking cessation referral if applicable(refer to patient education folder for contact #) [] Refer to [facility] Booklet Call your doctor immediately for: * Fever > 100.5 * Heavy vaginal bleeding ( >1 pad per hour) * Severe persistent headache * Shortness of breath * Reddened, hot, painful area to leg or breast * Drainage or odor from incision. * Keep incision clean and dry at all times and follow doctor's instructions regarding bathing/showering - Follow up plan Follow up: JULIANA LYNN MD [Primary Care Provider] - 6 Weeks
[2017-06-05 17:37] VITALS: BP 136/76
== END 2017-06-05 17:25 | disposition home or self-care (01) | DRG 775 ==
LOC: TRG 23:20 → LD 23:56 → OB 06-04 02:26
PROVIDERS: ADMIT Obstetrics & Gynecology; ATTEND Obstetrics & Gynecology
PROC: 10E0XZZ Delivery of Products of Conception, External Approach (ICD-10-PCS; principal; 2017-06-04)
DX: O62.3 Precipitate labor (principal); Z3A.36 36 weeks gestation of pregnancy; Z37.0 Single live birth; D24.1 Benign neoplasm of right breast; O75.89 Other specified complications of labor and delivery; O60.14X0 Preterm labor third trimester with preterm delivery third trimester, not applicable or unspecified; O99.619 Diseases of the digestive system complicating pregnancy, unspecified trimester; K11.7 Disturbances of salivary secretion; O20.8 Other hemorrhage in early pregnancy
CPT/HCPCS: 36415; 85014; 85018; 85027; 86850; 86900; 86901; 88307; J2590

== ENCOUNTER 2017-08-11 06:07 | Day surgery (SDC) | payer MEDICAID ==
[~2017-08-11 06:07] MED LIST: MARCAINE 0.25% INFILTRATI ONE; WATER FOR IRRIG STERILE IR ONE; XYLOCAINE 1% 20 mL INFILTRATI ONE
[2017-08-11] MEDS ORDERED: NACL BACTERIOSTATIC INFILTRATI ONE (06:43)
[2017-08-11] MEDS ORDERED: ANCEF/STERILE WATER 2 GM/20 ML IV NR (07:00)
[2017-08-11] MEDS ORDERED: DIPRIVAN 10 MG/ML IV ONE (07:17)
[2017-08-11] MEDS ORDERED: SUBLIMAZE ONE (07:18)
[2017-08-11] MEDS ORDERED: XYLOCAINE MPF 2% ONE (07:20)
[2017-08-11] MEDS ORDERED: ZOFRAN ONE (07:21)
[2017-08-11] MEDS ORDERED: DECADRON ONE (07:21)
[2017-08-11] MEDS ORDERED: XYLOCAINE 1% 20 mL ONE (07:33)
[2017-08-11] MEDS ORDERED: MARCAINE 0.25% INFILTRATI ONE ×3 (07:33→07:59)
--- NOTE | 2017-08-11 07:36 | Anesthesia Consultation ---
Anesthesia Consult and Med Hx Date of service: 08/11/17 - Airway Anesthetic Teeth Evaluation: Good ROM Head & Neck: Adequate Mental/Hyoid Distance: Adequate Mallampati Class: Class I Intubation Access Assessment: Good - Pulmonary Exam CTA: Yes - Cardiac Exam Cardiac Exam: RRR - Pre-Operative Health Status ASA Pre-Surgery Classification: ASA2 Proposed Anesthetic Plan: General - Pulmonary Hx Smoking: Yes (MARIJUANA 2x daily) Hx Asthma: No COPD: No Hx Pneumonia: No - Cardiovascular System Hx Hypertension: No - Central Nervous System Hx Seizures: No CVA: No Hx Psychiatric Problems: No - Hematic Hx Anemia: No Hx Sickle Cell Disease: No - Other Systems Hx Alcohol Use: No Hx Substance Use: Yes (MARIJUANA X2 PER DAY) Hx Cancer: No (rt breast fibroadenoma) - Additional Comments Anesthesia Medical History Comments: NAC
--- NOTE | 2017-08-11 07:36 | Anesthesia Day of Surgery ---
Anesthesia Day of Surgery - Day of Surgery Patient Examined: Yes Patient H&P Reviewed: Yes Patient is NPO: Yes
[2017-08-11] MEDS ORDERED: XYLOCAINE 1% 20 mL INFILTRATI ONE ×2 (07:59)
[2017-08-11] MEDS ORDERED: WATER FOR IRRIG STERILE IR ONE (07:59)
[2017-08-11] MEDS ORDERED: PEPCID PO NR (08:00)
[2017-08-11] MEDS ORDERED: VERSED IV NR (08:00)
[2017-08-11] MEDS ORDERED: LACTATED RINGERS 1,000 ML IV SCH (08:00)
[2017-08-11] MEDS ORDERED: DILAUDID IV PRN (09:00)
[2017-08-11] MEDS ORDERED: PERCOCET 5/325 PO PRN (09:00)
[2017-08-11] MEDS ORDERED: ZOFRAN IV PRN (09:00)
--- NOTE | 2017-08-11 09:02 | Short Stay Summary ---
Short Stay Documentation Date of service: 08/11/17 - History H&P: obtained from office - Allergies and Medications Current Medications: Allergies No Known Allergies Allergy (Verified 08/06/17 14:48) Home Medications Medication Instructions Recorded Confirmed Last Taken Type Ferrous Sulfate [Iron] 325 mg PO DAILY 08/11/17 08/11/17 2 Weeks Ago History HYDROcodone/APAP 5-325 [[place] 1 each PO Q6HR PRN #30 tablet 08/11/17 Unknown Rx 5/325] RX: Norgestimate-Ethinyl Estradiol 1 tab PO DAILY 08/11/17 08/11/17 08/10/17 History [Sprintec 28 Day Tablet] Active Medications Cefazolin Sodium (Ancef/Sterile Water 2 Gm/20 Ml) 2 gm IV PREOP NR Stop: 08/11/17 12:00 Famotidine (Pepcid) 20 mg PO PREOP NR Stop: 08/11/17 09:00 Last Admin: 08/11/17 07:55 Dose: 20 mg Hydromorphone HCl (Dilaudid) 0.5 mg IV Q10MIN PRN PRN Reason: Severe Pain Stop: 08/11/17 13:00 Lactated Ringer's (Lactated Ringers) 1,000 mls @ 100 mls/hr IV DIRECT [place] Last Admin: 08/11/17 07:55 Dose: 100 mls/hr Midazolam HCl (Versed) 2 mg IV PREOP NR Stop: 08/11/17 23:59 Last Admin: 08/11/17 07:57 Dose: 2 mg Ondansetron HCl (Zofran) 4 mg IV ONCE PRN PRN Reason: Nausea And Vomiting Stop: 08/11/17 09:01 Oxycodone/Acetaminophen (Percocet 5/325) 1 tab PO ONCE PRN PRN Reason: Pain, Moderate (4-6) Stop: 08/11/17 09:01 - Brief post op/procedure progress note Date of procedure: 08/11/17 Pre-op diagnosis: Right breast fibroadenoma of the lower outer quadrant Post-op diagnosis: same Procedure: Right breast fibroadenoma excisional biopsy Anesthesia: GETA Findings: Known right breast fibroadenoma Surgeon: ARNOLDO CARPENTER Estimated blood loss: minimal Pathology: list (right breast fibroadenoma) Specimen disposition: to lab Condition: stable - Disposition Condition at discharge: Good Disposition: DC-01 TO HOME OR SELFCARE Short Stay Discharge Plan Activity: other (no heavy lifting) Diet: regular Wound: other (keep incision clean and dry and may shower in 24 hours; no baths, pools or lakes; do not rub or scrub incision) Follow up with: JULIANA LYNN MD [Primary Care Provider] - 7 Days ARNOLDO CARPENTER MD [Staff Physician] - 7 Days Prescriptions: HYDROcodone/APAP 5-325 [[place] 5/325] 1 each PO Q6HR PRN #30 tablet PRN Reason: Pain
--- NOTE | 2017-08-11 09:17 | Operative Report ---
Operative Report Operative Report: Date of Service: August 11, 2017 Preoperative diagnosis: Right breast fibroadenoma of the lower outer quadrant Postoperative diagnosis: Same Procedure: Right breast fibroadenoma excisional biopsy of the lower outer quadrant Surgeon: Bindu Shaw MD Anesthesia: General Findings: Known right breast fibroadenoma with complete excision Complications: None EBL: Minimal Disposition: PACU in good condition Indications for operative procedure: This is a 26 year old lady with known right breast fibroadenoma with recommendations for excisional biopsy. Patient wished to proceed with the above procedure. Procedure in detail:The patient was taken to the operating room and was laid supine. General anesthesia was administered. Right breast was prepped and draped in the normal sterile operative fashion. Right breast fibroadenoma was palpable at the 6 o'clock position of the subareolar. Time out was performed. A skin incision was made with a 15 blade knife and dissection taken down to the subcutaneous tissues. The fibroadenoma was encountered and was dissected free with the aid of the Bovie cautery. Hemostasis was obtained with Bovie cautery. The specimen was sent to pathology. The breast cavity site was anesthetized with 1% lidocaine mixed with quarter percent Marcaine. The subcutaneous tissue were approximated and closed using interrupted 3-0 Vicryl and skin brought together and closed using a running 4-0 Monocryl followed by skin affix. She tolerated surgery very well and was awaken from anesthesia without any complications and transported to PACU in good condition.
--- NOTE | 2017-08-11 09:26 | Post Anesthesia Evaluation ---
- Post Anesthesia Evaluation Patient Participated: Yes Airway Patent: Yes Stable Respiratory Function: Yes Temp > 96.8F: Yes Pain Manageable: Yes Adequeate Hydration: Yes Anesthesia Complications: No
[2017-08-11] MEDS ORDERED: NORCO 5/325 PO PRN (10:00)
[2017-08-11 11:15] VITALS: BP 126/76
== END 2017-08-11 11:08 | disposition home or self-care (01) ==
LOC: OR 06:07
PROVIDERS: ATTEND Surgery
DX: D24.1 Benign neoplasm of right breast (principal); F17.200 Nicotine dependence, unspecified, uncomplicated
CPT/HCPCS: 19120; 88305; J0690; J1100; J2250; J2405; J2704; J3010; J7120; 88307

== ENCOUNTER 2018-12-20 20:24 | Inpatient (IN) | payer MEDICAID ==
[2018-12-20] MEDS ORDERED: BRETHINE IVP PRN (21:51)
[2018-12-20] MEDS ORDERED: XYLOCAINE 2% INFILTRATI ONE (21:51)
[2018-12-20] MEDS ORDERED: STADOL IV PRN (21:51)
[2018-12-20] MEDS ORDERED: BRETHINE SUB-Q PRN (21:51)
[2018-12-20] MEDS ORDERED: SUBLIMAZE IV PRN (21:51)
[2018-12-20] MEDS ORDERED: MINERAL OIL PO PRN (21:51)
[2018-12-20] MEDS ORDERED: LACTATED RINGERS 1,000 ML IV SCH (22:00)
[2018-12-20 22:04] LABS: Hematocrit 34.4 % (30.3-42.9); Hemoglobin 11.4 gm/dl (10.1-14.3); Mean Corpuscular HGB Conc 33 % (30-34); Mean Corpuscular Volume 94 fl (79-97); Platelet Count 198 K/mm3 (140-440); Red Blood Count 3.65 M/mm3 (3.65-5.03); Red Cell Distribution Width 13.9 % (13.2-15.2)
[2018-12-20] MEDS ORDERED: PITOCin/NS 30 UNIT/500ML 30 UNITS/500 ML BAG IV SCH (23:00)
--- NOTE | 2018-12-21 00:16 | History and Physical Report ---
History of Present Illness Date of examination: 12/20/18 Date of admission: 12/20/18 21:31 Chief complaint: contractions History of present illness: 28y/o @ 38+5 weeks presents with regular uterine contractions and advanced cervical dilation. Patient initiated care @ 10 weeks ega. course complicated by polyhydramnios, renal pyelectasis, +DS risk. +GBS Past History Past Medical History: no pertinent history Past Surgical History: no surgical history - Obstetrical History Expected Date of Delivery: 12/30/18 Actual Gestation: 38 Week(s) 5 Day(s) : 4 Para: 3 Hx # Term Pregnancies: 3 Number of Pregnancies: 0 Spontaneous Abortions: 0 Induced : 0 Number of Living Children: 3 Medications and Allergies Allergies Allergy/AdvReac Type Severity Reaction Status Date / Time No Known Allergies Allergy Verified 08/06/17 14:48 Home Medications Medication Instructions Recorded Confirmed Last Taken Type Ferrous Sulfate [Iron] 325 mg PO DAILY 08/11/17 12/21/18 2 Weeks Ago History ~07/28/17 HYDROcodone/APAP 5-325 [[place] 1 each PO Q6HR PRN #30 tablet 08/11/17 12/21/18 Unknown Rx 5/325] Norgestimate-Ethinyl Estradiol 1 tab PO DAILY 08/11/17 12/21/18 08/10/17 History [Sprintec 28 Day Tablet] Active Meds: Active Medications Butorphanol Tartrate (Stadol) 2 mg IV Q2H PRN PRN Reason: Pain , Severe (7-10) Last Admin: 12/20/18 22:02 Dose: 2 mg Documented by: Ephedrine Sulfate (Ephedrine Sulfate) 10 mg IV Q2M PRN PRN Reason: Hypotension Fentanyl (Sublimaze) 100 mcg IV Q2H PRN PRN Reason: Labor Pain Lactated Ringer's (Lactated Ringers) 1,000 mls @ 125 mls/hr IV DIRECT DOROTA Last Admin: 12/20/18 22:18 Dose: 125 mls/hr Documented by: Oxytocin/Sodium Chloride (Pitocin/Ns 20 Unit/1000ml Drip) 20 units in 1,000 mls @ 125 mls/hr IV DIRECT DOROTA Oxytocin/Sodium Chloride (Pitocin/Ns 30 Unit/500ml) 30 units in 500 mls @ 4 mls/hr IV TITR D[place]; Protocol Last Admin: 12/20/18 23:04 Dose: 4 mls/hr, 4 mls/hr Documented by: Mineral Oil (Mineral Oil) 30 ml PO QHS PRN PRN Reason: Constipation Terbutaline Sulfate (Brethine) 0.25 mg SUB-Q ONCE PRN PRN Reason: Hyperstimulation/Hypertonicity Terbutaline Sulfate (Brethine) 0.25 mg IVP ONCE PRN PRN Reason: Hyperstimulation/Hypertonicity Review of Systems All systems: negative Genitourinary: pelvic pain, contractions - Vital Signs Vital signs: Vital Signs Pulse BP 93 H 113/67 12/20/18 20:42 12/20/18 20:42 Temp Pulse Resp BP Pulse Ox 97.5 F L 114 H 18 108/59 12/20/18 20:51 12/20/18 23:55 12/20/18 22:02 12/20/18 23:55 - Physical Exam Breasts: Positive: deferred Cardiovascular: Regular rate Lungs: Positive: Clear to auscultation Abdomen: Positive: normal appearance Results Result Diagrams: 12/21/18 11:37 Abnormal lab results 12/20/18 Range/Units 21:25 WBC 12.8 H (4.5-11.0) K/mm3 All other labs normal. Assessment and Plan - Patient Problems (1) Active labor at term Current Visit: Yes Status: Acute Plan to address problem: admit to L&D
[2018-12-21] MEDS ORDERED: TUCKS PAD TP PRN (00:18)
[2018-12-21] MEDS ORDERED: PHENERGAN PR PRN (00:18)
[2018-12-21] MEDS ORDERED: TYLENOL PO PRN (00:18)
[2018-12-21] MEDS ORDERED: MILK OF MAGNESIA PO PRN (00:18)
[2018-12-21] MEDS ORDERED: LANSINOH TP PRN (00:18)
[2018-12-21] MEDS ORDERED: ZOFRAN IV PRN (00:18)
[2018-12-21] MEDS ORDERED: BENADRYL PO PRN (00:18)
[2018-12-21] MEDS ORDERED: DULCOLAX PR PRN (00:18)
[2018-12-21] MEDS ORDERED: PHENERGAN PO PRN (00:18)
--- NOTE | 2018-12-21 00:18 | Procedure Note ---
OB Delivery Note - Delivery Date of Delivery: 12/21/18 Surgeon: ADRIANNA OWUSU Estimated blood loss: 100cc - Vaginal Delivery presentation: vertex Delivery position: OA Intrapartum events: none, precipitous labor- <3hr Delivery augmentation: rupture of membranes Delivery monitor: external FHT Route of delivery: Delivery placenta: spontaneous Delivery cord: 3 umbilical vessels Episiotomy: none Anesthesia: none Delivery comments: The patient rapidly progressed to complete complete +2 and pushed to deliver a liveborn female with Apgars of 8 and 9 weight 7 lbs. 4 oz. Patient had a precipitous delivery was attended by the nursing staff. The placenta delivered spontaneously intact with a three-vessel cord. No lacerations were noted. Estimated blood loss of 100 mL. - Infant A at 1 minute: 8 at 5 minutes: 9 Infant Gender: Female (weight 7 lbs. 4 oz.)
[2018-12-21] MEDS: NORCO 5/325 PO PRN ×3 (00:31→18:44)
[2018-12-21] MEDS ORDERED: SODIUM CHLORIDE FLUSH SYRINGE 10 ML IV PRN (01:00)
[2018-12-21] MEDS: PITOCin/NS 20 UNIT/1000ML DRIP 20 UNITS/1,000 ML BAG IV SCH ×2 (01:09)
[2018-12-21] MEDS: IBUPROFEN PO SCH ×3 (01:56→17:00)
[2018-12-21 12:14] LABS: Hematocrit 30.1 % (30.3-42.9)
[2018-12-22] MEDS: IBUPROFEN PO SCH ×4 (00:15→23:58)
--- NOTE | 2018-12-22 16:36 | Progress Note ---
Assessment and Plan - Patient Problems (1) Active labor at term Current Visit: Yes Status: Acute Plan to address problem: routine care Subjective - Subjective Date of service: 12/22/18 Interval history: Patient reports uterine cramping. Lochia is decreasing. Tolerating regular diet Patient reports: appetite normal, voiding normally, pain well controlled : doing well Objective - Vital Signs Latest vital signs: Vital Signs Temp Pulse Resp BP Pulse Ox 12/22/18 08:50 98 F 80 18 113/69 12/22/18 01:35 97.8 F 88 18 101/58 98 Intake and Output 12/22/18 12/22/18 12/22/18 06:59 14:59 22:59 Intake Total 840 560 Balance 840 560 Intake: Oral 560 Intake, Free Water 840 Other: Total, Intake Amount 120 # Voids Void 1 1 - Exam Abdomen: Present: normal appearance, soft
--- NOTE | 2018-12-22 16:39 | Discharge Summary ---
Providers - Providers Date of Admission: 12/20/18 21:31 Date of discharge: 12/23/18 Attending physician: ADRIANNA OWUSU Primary care physician: ADRIANNA OWUSU Hospitalization Reason for admission: active labor Delivery: Discharge diagnosis: IUP at term delivered [place] baby: female Hospital course: Patient admitted in active labor. Has . uncomplicated Condition at discharge: Good Disposition: DC-01 TO HOME OR SELFCARE - Discharge Diagnoses (1) Active labor at term Status: Acute Plan - Discharge Medications Prescriptions: Ibuprofen [Motrin] 800 mg PO Q8HR PRN #60 tablet PRN Reason: Pain, Mild (1-3) HYDROcodone/ACETAMINOPHEN [[place] 5-325 Tablet] 1 each PO Q6H PRN #20 tablet PRN Reason: Pain, Mild (1-3) - Provider Discharge Summary Activity: no sex for 6 weeks, no heavy lifting 4 weeks, no strenuous exercise Diet: routine Instructions: routine Additional instructions: [] Smoking cessation referral if applicable(refer to patient education folder for contact #) [] Refer to [facility] Booklet Call your doctor immediately for: * Fever > 100.5 * Heavy vaginal bleeding ( >1 pad per hour) * Severe persistent headache * Shortness of breath * Reddened, hot, painful area to leg or breast * schedule followup in 4 weeks - Follow up plan
[2018-12-22] MEDS: NORCO 5/325 PO PRN ×2 (17:10→23:58)
[2018-12-23 17:50] VITALS: BP 135/92
== END 2018-12-23 16:42 | disposition home or self-care (01) | DRG 775 ==
LOC: TRG 20:24 → LD 21:31 → TRG 21:31 → OB 12-21 01:30
PROVIDERS: ADMIT Obstetrics & Gynecology; ATTEND Obstetrics & Gynecology
PROC: 10E0XZZ Delivery of Products of Conception, External Approach (ICD-10-PCS; principal; 2018-12-21)
DX: O62.3 Precipitate labor (principal); O62.0 Primary inadequate contractions; O40.3XX0 Polyhydramnios, third trimester, not applicable or unspecified; O99.824 Streptococcus B carrier state complicating childbirth; Z79.899 Other long term (current) drug therapy; Z37.0 Single live birth; Z3A.38 38 weeks gestation of pregnancy
CPT/HCPCS: 36415; 85014; 85018; 85027; 86592; 86762; 86850; 86900; 86901; G0378; J0595; J2590; J7120

== ENCOUNTER 2021-09-30 04:22 | Emergency (ER) | payer MEDICAID ==
[2021-09-30 04:44] VITALS: BP 127/89
--- NOTE | 2021-09-30 05:44 | Emergency Department Report ---
HPI - General Chief Complaint: Dental/Oral Time Seen by Provider: 09/30/21 05:40 - HPI HPI: 31-year-old -Vincentian female presents to the emergency department with a complaint of progressively worsening left lower posterior tooth/dental pain. The patient says that she has had a hole in the left back molar for about 1 month. Patient says that she has an appointment for a dentist in December 2021. She has tried oals-tkh-[id number] medications including ibuprofen and Tylenol without much relief. She says that the pain radiates into the jaw and left ear. She denies any fever, drooling, sore throat, headache. ED Past Medical Hx - Past Medical History Hx Hypertension: No Hx Congestive Heart Failure: No Hx Diabetes: No Hx Deep Vein Thrombosis: No Hx Renal Disease: No Hx Sickle Cell Disease: No Hx Seizures: No Hx Asthma: No Hx COPD: No Hx HIV: No - Surgical History Past Surgical History?: No - Social History Smoking Status: Never Smoker - Medications Home Medications: Home Medications Medication Instructions Recorded Confirmed Last Taken Type Ferrous Sulfate [Iron] 325 mg PO DAILY 08/11/17 12/21/18 2 Weeks Ago History ~07/28/17 HYDROcodone/APAP 5-325 [[place] 1 each PO Q6HR PRN #30 tablet 08/11/17 12/21/18 Unknown Rx 5/325] Norgestimate-Ethinyl Estradiol 1 tab PO DAILY 08/11/17 12/21/18 08/10/17 History [Sprintec 28 Day Tablet] HYDROcodone/ACETAMINOPHEN [[place] 1 each PO Q6H PRN #20 tablet 12/22/18 Unknown Rx 5-325 Tablet] Ibuprofen [Motrin] 800 mg PO Q8HR PRN #60 tablet 12/22/18 Unknown Rx Amoxicillin [Trimox CAP] 500 mg PO Q8H #21 capsule 09/30/21 Unknown Rx traMADoL [Ultram 50 MG tab] 50 mg PO Q6HR PRN #10 tablet 09/30/21 Unknown Rx ED Review of Systems ROS: Stated complaint: DENTAL PAIN Other details as noted in HPI Comment: All other systems reviewed and negative Constitutional: denies: chills, fever Eyes: denies: eye pain, eye discharge ENT: ear pain, dental pain. denies: throat pain Respiratory: denies: cough, shortness of breath Skin: denies: rash, lesions Neurological: denies: headache, numbness Physical Exam - Physical Exam Vital Signs: Vital Signs 09/30/21 04:42 Temperature 98.4 F Pulse Rate 71 Respiratory 16 Rate Blood Pressure 127/89 [Right] Physical Exam: GENERAL: The patient is well-developed well-nourished. HENT: Normocephalic. Atraumatic. Patient has moist mucous membranes. Multiple dental caries seen. The patient has a hole in the left posterior second molar. No drooling or trismus. Left external ear canal and tympanic membrane are unremarkable. EYES: Extraocular motions are intact. NECK: Supple. Trachea is midline. SKIN: Skin is warm and dry. NEURO: The patient is awake, alert, and oriented. The patient is cooperative. Normal speech. MUSCULOSKELETAL: There is no tenderness or deformity. There is no limitation range of motion. ED Course Vital Signs 09/30/21 04:42 Temperature 98.4 F Pulse Rate 71 Respiratory 16 Rate Blood Pressure 127/89 [Right] ED Medical Decision Making - Medical Decision Making This patient presents with a 1 month history of left posterior molar pain after she either broke it or developed a hole in the tooth. She has tried [id number] medications without any relief. On examination there is no visible or palpable abscess. The patient does not have any drooling or trismus. Vital signs reassuring including being afebrile. The patient will be placed on antibiotics and given a prescription for pain medication. She was also given an outpatient referral for a dentist. Critical Care Time: No Critical care attestation.: If time is entered above; I have spent that time in minutes in the direct care of this critically ill patient, excluding procedure time. ED Disposition Clinical Impression: Dental infection, Pain, dental Disposition: 01 HOME / SELF CARE / HOMELESS Is pt being admited?: No Condition: Stable Additional Instructions: Please follow-up with a dentist in the next few days if possible. Take medications only as prescribed. You have been prescribed a medication that is sedating and therefore should not be taken prior to driving, working, and responsible for children and in no way should be mixed with alcohol of any quantity. Return to the emergency department with any worsening of your symptoms, new or concerning symptoms not addressed during this current emergency department visit, or with any acute distress. Prescriptions: Amoxicillin [Trimox CAP] 500 mg PO Q8H #21 capsule traMADoL [Ultram 50 MG tab] 50 mg PO Q6HR PRN #10 tablet PRN Reason: Pain Referrals: [facility] [Outside] - 3-5 Days Time of Disposition: 05:44
== END 2021-09-30 05:49 | disposition home or self-care (01) ==
LOC: ED 04:22
DX: K04.7 Periapical abscess without sinus (principal); K08.89 Other specified disorders of teeth and supporting structures
CPT/HCPCS: 99282

== ENCOUNTER 2021-10-22 07:57 | Emergency (ER) | payer MEDICAID ==
[2021-10-22 09:12] VITALS: BP 123/74
--- NOTE | 2021-10-22 10:49 | Emergency Department Report ---
ED ENT HPI - General Chief complaint: Dental/Oral Stated complaint: oral pain Time Seen by Provider: 10/22/21 10:37 Source: patient Mode of arrival: Ambulatory Limitations: No Limitations - History of Present Illness Initial comments: 31-year-old female presents to the ER today with complaints of dental pain to left lower jaw. Onset of the pain was about a week ago. Patient states that she had similar symptoms about a month ago and came here and was treated with amoxicillin and tramadol. She states that she did get relief after taking those medications. She also states that she tried to make an appointment with a dentist, but evidently that she called was booked. She states that she felt he was able to get a dental appointment next Wednesday but she states that the pain is uncontrollable and she no longer has any of the pain medication she was prescribed about a month ago. She denies any swelling. She denies any facial redness. She denies any difficulty opening her mouth. She denies any fever chills or any additional symptoms at this time. MD complaint: tooth pain -: week(s) - Related Data Home Medications Medication Instructions Recorded Confirmed Last Taken Ferrous Sulfate [Iron] 325 mg PO DAILY 08/11/17 12/21/18 2 Weeks Ago ~07/28/17 Norgestimate-Ethinyl Estradiol 1 tab PO DAILY 08/11/17 12/21/18 08/10/17 [Sprintec 28 Day Tablet] Previous Rx's Medication Instructions Recorded Last Taken Type HYDROcodone/APAP 5-325 [[place] 1 each PO Q6HR PRN #30 tablet 08/11/17 Unknown Rx 5/325] HYDROcodone/ACETAMINOPHEN [[place] 1 each PO Q6H PRN #20 tablet 12/22/18 Unknown Rx 5-325 Tablet] Amoxicillin [Trimox CAP] 500 mg PO Q8H #21 capsule 10/22/21 Unknown Rx Ibuprofen [Motrin 800 MG tab] 800 mg PO Q8HR PRN #60 tablet 10/22/21 Unknown Rx traMADoL [Ultram 50 MG tab] 50 mg PO Q6HR PRN #10 tablet 10/22/21 Unknown Rx Allergies Allergy/AdvReac Type Severity Reaction Status Date / Time No Known Allergies Allergy Verified 09/30/21 04:42 ED Dental HPI - General Chief complaint: Dental/Oral Stated complaint: oral pain Time Seen by Provider: 10/22/21 10:37 Source: patient Mode of arrival: Ambulatory Limitations: No Limitations - Related Data Home Medications Medication Instructions Recorded Confirmed Last Taken Ferrous Sulfate [Iron] 325 mg PO DAILY 08/11/17 12/21/18 2 Weeks Ago ~07/28/17 Norgestimate-Ethinyl Estradiol 1 tab PO DAILY 08/11/17 12/21/18 08/10/17 [Sprintec 28 Day Tablet] Previous Rx's Medication Instructions Recorded Last Taken Type HYDROcodone/APAP 5-325 [[place] 1 each PO Q6HR PRN #30 tablet 08/11/17 Unknown Rx 5/325] HYDROcodone/ACETAMINOPHEN [[place] 1 each PO Q6H PRN #20 tablet 12/22/18 Unknown Rx 5-325 Tablet] Amoxicillin [Trimox CAP] 500 mg PO Q8H #21 capsule 10/22/21 Unknown Rx Ibuprofen [Motrin 800 MG tab] 800 mg PO Q8HR PRN #60 tablet 10/22/21 Unknown Rx traMADoL [Ultram 50 MG tab] 50 mg PO Q6HR PRN #10 tablet 10/22/21 Unknown Rx Allergies Allergy/AdvReac Type Severity Reaction Status Date / Time No Known Allergies Allergy Verified 09/30/21 04:42 ED Review of Systems ROS: Stated complaint: oral pain Other details as noted in HPI Comment: All other systems reviewed and negative Constitutional: denies: chills, fever Eyes: denies: eye pain, eye discharge, vision change ENT: dental pain. denies: ear pain, throat pain, hearing loss, epistaxis, congestion Respiratory: denies: cough, shortness of breath, wheezing Cardiovascular: denies: chest pain, palpitations Endocrine: no symptoms reported Gastrointestinal: denies: abdominal pain, nausea, vomiting, diarrhea, constipation, hematemesis, hematochezia Genitourinary: denies: urgency, dysuria, frequency, hematuria, discharge, abnormal menses, dyspareunia Musculoskeletal: denies: back pain, joint swelling, arthralgia Skin: denies: rash, lesions Neurological: denies: headache, weakness, paresthesias Psychiatric: denies: anxiety, depression, auditory hallucinations, visual hallucinations, suicidal thoughts Hematological/Lymphatic: denies: easy bleeding, easy bruising, swollen glands ED Past Medical Hx - Past Medical History Hx Hypertension: No Hx Congestive Heart Failure: No Hx Diabetes: No Hx Deep Vein Thrombosis: No Hx Renal Disease: No Hx Sickle Cell Disease: No Hx Seizures: No Hx Asthma: No Hx COPD: No Hx HIV: No - Social History Smoking Status: Never Smoker - Medications Home Medications: Home Medications Medication Instructions Recorded Confirmed Last Taken Type Ferrous Sulfate [Iron] 325 mg PO DAILY 08/11/17 12/21/18 2 Weeks Ago History ~07/28/17 HYDROcodone/APAP 5-325 [[place] 1 each PO Q6HR PRN #30 tablet 08/11/17 12/21/18 Unknown Rx 5/325] Norgestimate-Ethinyl Estradiol 1 tab PO DAILY 08/11/17 12/21/18 08/10/17 History [Sprintec 28 Day Tablet] HYDROcodone/ACETAMINOPHEN [[place] 1 each PO Q6H PRN #20 tablet 12/22/18 Unknown Rx 5-325 Tablet] Amoxicillin [Trimox CAP] 500 mg PO Q8H #21 capsule 10/22/21 Unknown Rx Ibuprofen [Motrin 800 MG tab] 800 mg PO Q8HR PRN #60 tablet 10/22/21 Unknown Rx traMADoL [Ultram 50 MG tab] 50 mg PO Q6HR PRN #10 tablet 10/22/21 Unknown Rx ED Physical Exam - General Limitations: No Limitations General appearance: alert, in no apparent distress - Head Head exam: Present: atraumatic, normocephalic, normal inspection - Eye Eye exam: Present: normal appearance, PERRL, EOMI Pupils: Present: normal accommodation - ENT ENT exam: Present: normal exam, mucous membranes moist - Expanded ENT Exam Expanded Mouth exam: Present: normal external inspection 1 - Dental Tenderness (Severe dental tenderness; mild gingival swelling; no obvious abscess), Other (Severe decay and impaction noted) - Neck Neck exam: Present: normal inspection, full ROM. Absent: meningismus, lymphadenopathy ED Course Vital Signs 10/22/21 09:09 Temperature 98.9 F Pulse Rate 78 Respiratory 17 Rate Blood Pressure 123/74 O2 Sat by Pulse 99 Oximetry Critical care attestation.: If time is entered above; I have spent that time in minutes in the direct care of this critically ill patient, excluding procedure time. ED Disposition Clinical Impression: Dental impaction, Pain due to dental caries Disposition: HOME / SELF CARE / HOMELESS Is pt being admited?: No Does the pt Need Aspirin: No Condition: Stable Instructions: Impacted Molar Additional Instructions: I recommend that you take the amoxicillin as prescribed. Take the Ultram and ibuprofen as prescribed for pain. Continue to do warm salt water rinses or you can apply warm compress over your face. Keep your appointment with your dentist for next Wednesday. Return to the ER if your symptoms worsens in any way. Prescriptions: Ibuprofen [Motrin 800 MG tab] 800 mg PO Q8HR PRN #60 tablet PRN Reason: Pain, Mild (1-3) Amoxicillin [Trimox CAP] 500 mg PO Q8H #21 capsule traMADoL [Ultram 50 MG tab] 50 mg PO Q6HR PRN #10 tablet PRN Reason: Pain Referrals: PRIMARY CARE, [Primary Care Provider] - 3-5 Days Time of Disposition: 10:53
== END 2021-10-22 11:20 | disposition home or self-care (01) ==
LOC: ED 07:57
DX: K01.1 Impacted teeth (principal); K02.9 Dental caries, unspecified
CPT/HCPCS: 99282

== ENCOUNTER 2022-04-29 05:38 | Emergency (ER) | payer MEDICAID ==
[2022-04-29 05:47] VITALS: BP 139/99
== END 2022-04-30 01:49 | disposition left against medical advice (07) ==
LOC: ED 05:38
DX: K13.79 Other lesions of oral mucosa (principal); Z53.21 Procedure and treatment not carried out due to patient leaving prior to being seen by health care provider